=== PATIENT | female | born 1955 | race Caucasian/White ===

== ENCOUNTER 2018-01-31 06:39 | Day surgery (SDC) | payer MEDICAID ==
[~2018-01-31] VITALS: Ht 180.3 cm; Wt 103.3 kg
[2018-01-31] MEDS ORDERED: normal saline 1000ml 1,000 ML IV PRN (06:55)
[2018-01-31] MEDS ORDERED: ALBU8HFA PO (07:12)
[2018-01-31] MEDS ORDERED: LISI-604 PO (07:12)
[2018-01-31] MEDS ORDERED: IBUP200C5 PO (07:12)
[2018-01-31] MEDS ORDERED: METF10004 PO (07:12)
[2018-01-31 07:40] LABS: HEMATOCRIT 41.9 % (35.0-45.0); HEMOGLOBIN 13.7 g/dl (12.0-16.0); MEAN CORPUSCULAR HEMOGLOBIN 27.3 PG (27.0-31.0); MEAN CORPUSCULAR HGB CONC 32.7 % (33.0-36.5); MEAN CORPUSCULAR VOLUME 83.6 FL (78-98); MEAN PLATELET VOLUME 8.4 FL (7.4-10.4); PLATELET COUNT 358 X10'3 (140-440); RED BLOOD COUNT 5.02 X10'6 (4.20-5.60); RED CELL DISTRIBUTION WIDTH 13.8 % (11.5-14.5); WHITE BLOOD COUNT 7.8 X10'3 (4.5-11.0)
[2018-01-31 07:50] VITALS: BP 164/83
[2018-01-31] MEDS ORDERED: LIDOcaine 1%/PF 5ML 10 MG/ML VIAL ONE (08:10)
[2018-01-31] MEDS ORDERED: heparin sodium, porcine/PF 100unit/ml 5ML syringe ONE (08:10)
[2018-01-31] MEDS ORDERED: heparin sodium, porcine/PF 100unit/ml 5ML syringe ICATH ONE (08:15)
[2018-01-31] MEDS ORDERED: fentaNYL/PF 50MCG/1 ML 2ML syringe IV PRN (08:15)
[2018-01-31] MEDS ORDERED: LIDOcaine 1%/PF 5ML 10 MG/ML VIAL SQ ONE (08:15)
[2018-01-31] MEDS ORDERED: midazolam 2 mg/2 ml injection IV PRN (08:15)
[2018-01-31 08:16] LABS: TOTAL CELLS COUNTED 100
[2018-01-31 08:17] LABS: MICROCYTOSIS 1+; PLATELET ESTIMATE NORMAL
[2018-01-31] MEDS ORDERED: midazolam 2 mg/2 ml injection ONE ×2 (08:19→08:23)
[2018-01-31] MEDS ORDERED: fentaNYL/PF 50MCG/1 ML 2ML syringe ONE ×2 (08:19→08:23)
[2018-01-31 09:45] VITALS: BP 130/61
[2018-01-31 10:00] VITALS: BP 138/71
[2018-01-31 10:15] VITALS: BP 142/62
[2018-01-31 10:30] VITALS: BP 119/48
[2018-01-31 10:45] VITALS: BP 132/58
== END 2018-01-31 11:00 | disposition home or self-care (01) ==
LOC: SSTAY O 06:39
PROVIDERS: ATTEND Radiology Diagnostic Radiology
DX: C50.912 Malignant neoplasm of unspecified site of left female breast (principal); E11.9 Type 2 diabetes mellitus without complications; Z79.84 Long term (current) use of oral hypoglycemic drugs; Z79.1 Long term (current) use of non-steroidal anti-inflammatories (NSAID); Z87.891 Personal history of nicotine dependence; Z72.89 Other problems related to lifestyle; Z87.09 Personal history of other diseases of the respiratory system; Z79.899 Other long term (current) drug therapy
CPT/HCPCS: 36415; 36561; 76937; 77001; 85025; 99152; 99153; A6219; C1788; C1894; J1642; J2001; J2250; J3010; J7030; A4620